=== PATIENT | female | born 1990 | race Two or more races ===

== ENCOUNTER 2017-01-15 09:54 | Emergency (ER) | payer OTHER ==
[~2017-01-15 09:54] MED LIST: ACET50TA PO; IBUP80TA PO; VITAPRTA PO
--- NOTE | 2017-01-15 10:20 | EDDOCDS ---
Physician Documentation [facility] Name: Joyce Parra Age: 26 yrs Sex: Female : 1990 Arrival Date: 01/15/2017 Time: 09:54 Bed Triage 2 Private MD: Other - Complete Info On Cds; THI Tapia Disposition: 01/15/17 10:13 Discharged to Home/Self Care. Impression: Acute nasopharyngitis [common cold]. - Condition is Stable. - Discharge Instructions: Upper Respiratory Infection, Adult, Cool Mist Vaporizers, Viral Infections, [id number]. - Medication Reconciliation, Local Pharmacy Hours form. - Follow up: THI Tapia; When: Call to arrange an appointment; Reason: Further diagnostic work-up, Recheck today's complaints, Continuance of care. - Problem is new. - Symptoms are unchanged. Historical: - Allergies: Morphine; seafood; Augmentin; - Home Meds: 1. Tylenol 325 mg Oral tab 2 tabs as needed (Last dose: 01/15/2017 07:30) - PMHx: none; - PSHx: Tubal ligation; Appendectomy; - Social history: Smoking status: Patient states was never smoker of tobacco. No barriers to communication noted, The patient speaks fluent Singaporean. - Family history: Not pertinent. - : The pt / caregiver states he / she is not on anticoagulants. Home medication list is obtained from the patient. - Exposure Risk Screening:: None identified. 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 11 in. (180.34 cm) (R); Pain 8/10; 09:57 Body Mass Index 30.68 (99.79 kg, 180.34 cm) jrd MDM: 10:19 [facility] Payment Agreement was scanned into [employer] and attached to record. jp5 10:19 Financial registration complete. jp5 Signatures: Francisco Hercules RN RN dwg Barney, Michael B RN RN mlb1 WolfFlorentin khan PA PA btw Price, Jennalee jp5 The chart was reviewed and I authenticate all verbal orders and agree with the evaluation and treatment provided.Attachments: 10:19 [facility] Payment Agreement jp5 MTDD
--- NOTE | 2017-01-15 10:20 | EDDOCDS ---
Nurse's Notes [facility] Name: Joyce Parra Age: 26 yrs Sex: Female : 1990 Arrival Date: 01/15/2017 Time: 09:54 Bed Triage 2 Private MD: Other - Complete Info On Cds; THI Tapia Diagnosis: Acute nasopharyngitis [common cold] Presentation: 01/15 10:00 Presenting complaint: Patient states: Headache and cough for 6 days, generalized body dwg aches since yesterday. Adult Sepsis Screening: The patient does not have new or worsening altered mentation. Patient's respiratory rate is less than 22. Systolic blood pressure is greater than 100. Patient has a qSOFA score of 0- Negative Sepsis Screen. Suicide/Homicide risk assessment- the patient denies having any suicidal and/or homicidal ideations and does not present with any other emotional, behavioral or mental health complaints. Status: The patient is a dependent. Transition of care: patient was not received from another setting of care. 10:00 Acuity: GEORGE Level 5 dwg 10:00 Method Of Arrival: Walkin/Carried/Asstd dwg Triage Assessment: 10:02 General: Appears in no apparent distress, uncomfortable. Pain: Pain currently is 8 out dwg of 10 on a pain scale. HIV screening NA for this visit Offered previously. 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 Tylenol 325 mg Oral tab 2 tabs as needed (Last dose: 01/15/2017 07:30) - PMHx: none; - PSHx: Tubal ligation; Appendectomy; - Social history: Smoking status: Patient states was never smoker of tobacco. No barriers to communication noted, The patient speaks fluent Bhutanese. - Family history: Not pertinent. - : The pt / caregiver states he / she is not on anticoagulants. Home medication list is obtained from the patient. - Exposure Risk Screening:: None identified. Screenin:18 Screening information is obtained from the patient. Fall risk: No risks identified. mlb1 Assistance ADL's: requires no assistance with activities of daily living. Abuse/DV Screen: The patient / caregiver reports he/she is: not in a situation that causes fear, pain or injury. Nutritional screening: No deficits noted. Advance Directives: Currently, there is no health care proxy. home support is adequate. Assessment: 10:18 General: Appears in no apparent distress, Behavior is appropriate for age, cooperative. mlb1 Pain: Location: "all over" Pain currently is 3 out of 10 on a pain scale. Quality of pain is described as aching. Neurological: No deficits noted. Respiratory: Airway is patent Respiratory effort is even, unlabored, Breath sounds are clear bilaterally. Reports cough that is. Derm: No deficits noted. Vital Signs: 09:57 BP 151 / 86 RA Sitting (auto/reg); Pulse 119; Resp 18; Temp 98.8; Pulse Ox 99% on R/A; jrd Weight 99.79 kg (R); Height 5 ft. 11 in. (180.34 cm) (R); Pain 8/10; 09:57 Body Mass Index 30.68 (99.79 kg, 180.34 cm) [facility] Vitals: 09:57 Log In Time: January 15, 2017 at 09:50. [facility] ED Course: 09:56 Patient visited by eHbert Alvarez PCA. jrd 09:56 Patient moved to Waiting jrd 09:57 Other - Complete Info On Cds is Private Physician. jrd 09:57 THI Tapia is Private Physician. jrd 09:58 Patient visited by Hebert Alvarez PCA. jrd 09:58 Patient moved to Pre RCE jrd 10:01 Triage Initiated dwg 10:02 Patient moved to Triage 2 dwg 10:09 Florentin Marks PA is PHCP. btw 10:09 Sebastian Palomares MD is Attending Physician. btw 10:09 Patient visited by Florentin Marks PA. btw 10:12 THI Tapia is Referral Physician. btw 10:18 No IV's were initiated during this patient's visit. No procedures done that require mlb1 assistance. 10:19 The patient / caregiver is instructed regarding the plan of care and ED course. mlb1 10:19 [facility] Payment Agreement was scanned into [employer] and attached to record. jp5 Order Results: There are currently no results for this order. Outcome: 10:13 Discharge ordered by Provider. btw 10:19 Discharge Assessment: Patient awake, alert and oriented x 3. No cognitive and/or mlb1 functional deficits noted. Patient verbalized understanding of disposition instructions. patient administered narcotics - no. The following High Risk Discharge criteria are identified: None. Discharged to home ambulatory. Condition: good. Discharge instructions given to patient, Instructed on discharge instructions, follow up and referral plans. Demonstrated understanding of instructions, Pt was receptive of discharge instructions/ teaching. No special radiology studies were completed. Property sent home with patient. 10:19 Patient left the ED. mlb1 Signatures: Francisco Hercules, RN RN dwZaheer Li RN RN mlb1 Florentin Marks PA PA rohitw Hebert Alvarez, [employer] SALES AND SERVICE TECHNICIAN d Meaghan Carias MTDKevin
--- NOTE | 2017-01-17 11:21 | EDDOCDS ---
Physician Documentation [facility] Name: Joyce Parra Age: 26 yrs Sex: Female : 1990 Arrival Date: 01/15/2017 Time: 09:54 Bed Triage 2 Private MD: Other - Complete Info On Cds; THI Tapia Disposition: 01/15/17 10:13 Discharged to Home/Self Care. Impression: Acute nasopharyngitis [common cold]. - Condition is Stable. - Discharge Instructions: Upper Respiratory Infection, Adult, Cool Mist Vaporizers, Viral Infections, [id number]. - Medication Reconciliation, Local Pharmacy Hours form. - Follow up: THI Tapia; When: Call to arrange an appointment; Reason: Further diagnostic work-up, Recheck today's complaints, Continuance of care. - Problem is new. - Symptoms are unchanged. Historical: - Allergies: Morphine; seafood; Augmentin; - Home Meds: 1. Tylenol 325 mg Oral tab 2 tabs as needed (Last dose: 01/15/2017 07:30) - PMHx: none; - PSHx: Tubal ligation; Appendectomy; - Social history: Smoking status: Patient states was never smoker of tobacco. No barriers to communication noted, The patient speaks fluent Micronesian. - Family history: Not pertinent. - : The pt / caregiver states he / she is not on anticoagulants. Home medication list is obtained from the patient. - Exposure Risk Screening:: None identified. 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 11 in. (180.34 cm) (R); Pain 8/10; 09:57 Body Mass Index 30.68 (99.79 kg, 180.34 cm) jrd MDM: 10:19 [facility] Payment Agreement was scanned into [employer] and attached to record. jp5 10:19 Financial registration complete. jp5 01/16 10:07 T-Sheet-- Draft Copy was scanned into [employer] and attached to record. gb Signatures: Francisco Hercules RN RN dwg Maria Teresa Gallego, Reg Reg gb Zaheer Amaya RN RN mlb1 Florentin Marks PA PA btw Price, Jennalee jp5 The chart was reviewed and I authenticate all verbal orders and agree with the evaluation and treatment provided.Attachments: 01/15 10:19 [facility] Payment Agreement jp5 01/16 10:07 T-Sheet-- Draft Copy gb Chart Complete MTDD
--- NOTE | 2017-01-17 11:21 | EDDOCDS ---
Nurse's Notes [facility] Name: Joyce Parra Age: 26 yrs Sex: Female : 1990 Arrival Date: 01/15/2017 Time: 09:54 Bed Triage 2 Private MD: Other - Complete Info On Cds; THI Tapia Diagnosis: Acute nasopharyngitis [common cold] Presentation: 01/15 10:00 Presenting complaint: Patient states: Headache and cough for 6 days, generalized body dwg aches since yesterday. Adult Sepsis Screening: The patient does not have new or worsening altered mentation. Patient's respiratory rate is less than 22. Systolic blood pressure is greater than 100. Patient has a qSOFA score of 0- Negative Sepsis Screen. Suicide/Homicide risk assessment- the patient denies having any suicidal and/or homicidal ideations and does not present with any other emotional, behavioral or mental health complaints. Status: The patient is a dependent. Transition of care: patient was not received from another setting of care. 10:00 Acuity: GEORGE Level 5 dwg 10:00 Method Of Arrival: Walkin/Carried/Asstd dwg Triage Assessment: 10:02 General: Appears in no apparent distress, uncomfortable. Pain: Pain currently is 8 out dwg of 10 on a pain scale. HIV screening NA for this visit Offered previously. 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 Tylenol 325 mg Oral tab 2 tabs as needed (Last dose: 01/15/2017 07:30) - PMHx: none; - PSHx: Tubal ligation; Appendectomy; - Social history: Smoking status: Patient states was never smoker of tobacco. No barriers to communication noted, The patient speaks fluent [place]inean. - Family history: Not pertinent. - : The pt / caregiver states he / she is not on anticoagulants. Home medication list is obtained from the patient. - Exposure Risk Screening:: None identified. Screenin:18 Screening information is obtained from the patient. Fall risk: No risks identified. mlb1 Assistance ADL's: requires no assistance with activities of daily living. Abuse/DV Screen: The patient / caregiver reports he/she is: not in a situation that causes fear, pain or injury. Nutritional screening: No deficits noted. Advance Directives: Currently, there is no health care proxy. home support is adequate. Assessment: 10:18 General: Appears in no apparent distress, Behavior is appropriate for age, cooperative. mlb1 Pain: Location: "all over" Pain currently is 3 out of 10 on a pain scale. Quality of pain is described as aching. Neurological: No deficits noted. Respiratory: Airway is patent Respiratory effort is even, unlabored, Breath sounds are clear bilaterally. Reports cough that is. Derm: No deficits noted. Vital Signs: 09:57 BP 151 / 86 RA Sitting (auto/reg); Pulse 119; Resp 18; Temp 98.8; Pulse Ox 99% on R/A; jrd Weight 99.79 kg (R); Height 5 ft. 11 in. (180.34 cm) (R); Pain 8/10; 09:57 Body Mass Index 30.68 (99.79 kg, 180.34 cm) [facility] Vitals: 09:57 Log In Time: January 15, 2017 at 09:50. [facility] ED Course: 09:56 Patient visited by Hebert Alvarez PCA. jrd 09:56 Patient moved to Waiting jrd 09:57 Other - Complete Info On Cds is Private Physician. jrd 09:57 THI Tapia is Private Physician. jrd 09:58 Patient visited by Hebert Alvarez PCA. jrd 09:58 Patient moved to Pre RCE jrd 10:01 Triage Initiated dwg 10:02 Patient moved to Triage 2 dwg 10:09 Florentin Marks PA is PHCP. btw 10:09 Sebastian Palomares MD is Attending Physician. btw 10:09 Patient visited by Florentin Marks PA. btw 10:12 THI Tapia is Referral Physician. btw 10:18 No IV's were initiated during this patient's visit. No procedures done that require mlb1 assistance. 10:19 The patient / caregiver is instructed regarding the plan of care and ED course. mlb1 10:19 [facility] Payment Agreement was scanned into [employer] and attached to record. jp5 01/16 10:07 T-Sheet-- Draft Copy was scanned into [employer] and attached to record. gb Order Results: There are currently no results for this order. Outcome: 01/15 10:13 Discharge ordered by Provider. btw 10:19 Discharge Assessment: Patient awake, alert and oriented x 3. No cognitive and/or mlb1 functional deficits noted. Patient verbalized understanding of disposition instructions. patient administered narcotics - no. The following High Risk Discharge criteria are identified: None. Discharged to home ambulatory. Condition: good. Discharge instructions given to patient, Instructed on discharge instructions, follow up and referral plans. Demonstrated understanding of instructions, Pt was receptive of discharge instructions/ teaching. No special radiology studies were completed. Property sent home with patient. 10:19 Patient left the ED. mlb1 Signatures: Francisco Hercules, RN RN Maria Teresa Bueno, Zaheer Pringle RN RN mlb1 Florentin Marks PA PA btw Hebert Alvarez PCA PCA jrd Price, Jennalee jp5 Chart Complete VICKIE
--- NOTE | 2017-01-17 11:21 | EDDOCDS ---
Physician Documentation [facility] Name: Joyce Parra Age: 26 yrs Sex: Female : 1990 Arrival Date: 01/15/2017 Time: 09:54 Bed Triage 2 Private MD: Other - Complete Info On Cds; THI Tapia Disposition: 01/15/17 10:13 Discharged to Home/Self Care. Impression: Acute nasopharyngitis [common cold]. - Condition is Stable. - Discharge Instructions: Upper Respiratory Infection, Adult, Cool Mist Vaporizers, Viral Infections, [id number]. - Medication Reconciliation, Local Pharmacy Hours form. - Follow up: THI Tapia; When: Call to arrange an appointment; Reason: Further diagnostic work-up, Recheck today's complaints, Continuance of care. - Problem is new. - Symptoms are unchanged. Historical: - Allergies: Morphine; seafood; Augmentin; - Home Meds: 1. Tylenol 325 mg Oral tab 2 tabs as needed (Last dose: 01/15/2017 07:30) - PMHx: none; - PSHx: Tubal ligation; Appendectomy; - Social history: Smoking status: Patient states was never smoker of tobacco. No barriers to communication noted, The patient speaks fluent Malagasy. - Family history: Not pertinent. - : The pt / caregiver states he / she is not on anticoagulants. Home medication list is obtained from the patient. - Exposure Risk Screening:: None identified. 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 11 in. (180.34 cm) (R); Pain 8/10; 09:57 Body Mass Index 30.68 (99.79 kg, 180.34 cm) jrd MDM: 10:19 [facility] Payment Agreement was scanned into [employer] and attached to record. jp5 10:19 Financial registration complete. jp5 01/16 10:07 T-Sheet-- Draft Copy was scanned into [employer] and attached to record. gb Signatures: Francisco Hercules RN RN dwg Maria Teresa Gallego, Reg Reg gb Zaheer Amaya RN RN mlb1 Florentin Marks PA PA btw Price, Jennalee jp5 The chart was reviewed and I authenticate all verbal orders and agree with the evaluation and treatment provided.Attachments: 01/15 10:19 [facility] Payment Agreement jp5 01/16 10:07 T-Sheet-- Draft Copy gb Chart Complete MTDD
== END 2017-01-15 10:19 | disposition home or self-care (01) ==
LOC: M ED 09:54
DX: J00 Acute nasopharyngitis [common cold] (principal); B34.9 Viral infection, unspecified; Z88.1 Allergy status to other antibiotic agents; Z88.5 Allergy status to narcotic agent; Z91.013 Allergy to seafood

== ENCOUNTER 2017-08-27 10:34 | Emergency (ER) | payer OTHER ==
[~2017-08-27] VITALS: Ht 162.6 cm; Wt 104.5 kg
[2017-08-27 10:35] VITALS: BP 116/71
[2017-08-27] MEDS ORDERED: ALEV220C2 PO (10:44)
[2017-08-27] MEDS ORDERED: ULTR50TA8 PO (12:00)
--- NOTE | 2017-08-28 10:58 | REP ---
REASON: Pain after trauma. COMPARISON: No priors. FINDINGS: No acute fracture or destructive osseous lesion. The mortise is intact. Signed by Woodrow Van DO 08/28/2017 12:12 P
== END 2017-08-27 12:10 | disposition home or self-care (01) ==
LOC: M ED 10:34
DX: S93.412A Sprain of calcaneofibular ligament of left ankle, initial encounter (principal); W01.198A Fall on same level from slipping, tripping and stumbling with subsequent striking against other object, initial encounter; Y92.410 Unspecified street and highway as the place of occurrence of the external cause; Y93.01 Activity, walking, marching and hiking; Y99.9 Unspecified external cause status

== ENCOUNTER → 2017-08-29 | Outpatient (CLI) | payer OTHER ==
[~2017-08-29] MED LIST changes: +ALEV220C2 PO; +ULTR50TA8 PO
--- NOTE | 2017-08-29 20:23 | REP ---
LEFT FOOT, FOUR VIEWS: HISTORY: Injury. There is no acute fracture or dislocation. The joint spaces are normal in appearance. IMPRESSION: There is no acute fracture or dislocation. Signed by Avinash Baez MD 08/30/2017 08:27 A
== END ==
LOC: M LRY 19:45
PROVIDERS: ATTEND Nurse Practitioner Family
DX: S99.922A Unspecified injury of left foot, initial encounter (principal); X58.XXXA Exposure to other specified factors, initial encounter; Y93.9 Activity, unspecified; Y92.9 Unspecified place or not applicable; Y99.8 Other external cause status
CPT/HCPCS: 73630; G0463

== ENCOUNTER → 2017-12-25 | Outpatient (CLI) | payer OTHER | LOC: M LRY 18:02 | DX: S29.9XXA Unspecified injury of thorax, initial encounter (principal); M54.2 Cervicalgia; X58.XXXA Exposure to other specified factors, initial encounter; Y92.9 Unspecified place or not applicable | CPT/HCPCS: 72052; 96372 ==